=== PATIENT | female | born 1950 | race Caucasian/White ===

== ENCOUNTER 2018-12-21 08:00 | Day surgery (SDC) | payer OTHER ==
[~2018-12-21] VITALS: Ht 172.7 cm; Wt 57.5 kg
[~2018-12-21 08:00] MED LIST: Alph-E-Mixed400 UNIT PO; CHOL10002 PO; ESCI10 PO; ESCI20 PO; LAMO100 PO; MULTI VITAMIN1 EACH PO; MULVITMIND PO; Milk Of Ma400 MG/5 M; Stool Softener100 MG PO; VITAMIN C500 M1 PO; VITAMIN D32000 UNIT PO; VITAMIN E100 UNI1 PO; Vitamin C100 M1 PO
--- NOTE | 2018-12-21 09:01 | NUR ---
12/21/18 0901 RadhaLucía gupta 1 ATTEMPT OF IV IN RT HAND AND WOULD NOT THREAD. 1 ATTEMPT IN RT FOREARM AND IT WAS SUCC.
== END 2018-12-21 11:29 | disposition home or self-care (01) ==
LOC: ORSCSDS 08:00
PROVIDERS: Internal Medicine Gastroenterology
PROC: 0DB58ZX Excision of Esophagus, Via Natural or Artificial Opening Endoscopic, Diagnostic (ICD-10-PCS; principal; 2018-12-21 09:45)
PROC: 0DBK8ZX Excision of Ascending Colon, Via Natural or Artificial Opening Endoscopic, Diagnostic (ICD-10-PCS; principal; 2018-12-21 09:45)
PROC: 0DB68ZX Excision of Stomach, Via Natural or Artificial Opening Endoscopic, Diagnostic (ICD-10-PCS; principal; 2018-12-21 09:45)
DX: K21.9 Gastro-esophageal reflux disease without esophagitis (principal); R13.14 Dysphagia, pharyngoesophageal phase; R07.9 Chest pain, unspecified; K29.70 Gastritis, unspecified, without bleeding; K31.9 Disease of stomach and duodenum, unspecified; Z12.11 Encounter for screening for malignant neoplasm of colon; Z86.010 Personal history of colon polyps; D12.2 Benign neoplasm of ascending colon; K57.30 Diverticulosis of large intestine without perforation or abscess without bleeding
CPT/HCPCS: 87081; 88305; 88342; J7120

== ENCOUNTER → 2019-06-15 | Outpatient (CLI) | payer OTHER | END | disposition home or self-care (01) | LOC: LAB SHORT 11:26 → LAB 11:26 | PROVIDERS: Nurse Practitioner | DX: Z01.419 Encounter for gynecological examination (general) (routine) without abnormal findings (principal) | CPT/HCPCS: G0145 ==

== ENCOUNTER → 2021-05-14 | Outpatient (CLI) | payer OTHER | END | disposition home or self-care (01) | LOC: LAB SHORT 08:10 | PROVIDERS: Nurse Practitioner | DX: Z01.419 Encounter for gynecological examination (general) (routine) without abnormal findings (principal) | CPT/HCPCS: G0145 ==

== ENCOUNTER → 2022-08-05 | Outpatient (CLI) | payer OTHER ==
[2022-08-13 15:08] LABS: HPV 16 Negative (Negative); HPV 18 Negative (Negative); HPV OTHER HR TYPES Negative (Negative)
== END | disposition home or self-care (01) ==
LOC: LAB SHORT 16:00 → LAB 16:00
PROVIDERS: Physician Assistant
DX: Z01.419 Encounter for gynecological examination (general) (routine) without abnormal findings (principal)
CPT/HCPCS: 87624; 88175

== ENCOUNTER → 2024-12-26 | Outpatient (CLI) | payer OTHER ==
[~2024-12-26] MED LIST changes: +ALEN70; +Calcium Carbon500 MG; +FISH OIL 1,4001 EAC2; +ZINC15
== END | disposition home or self-care (01) ==
LOC: PLD 08:13 → LAB 08:13
DX: J39.2 Other diseases of pharynx (principal)
CPT/HCPCS: 88305

== ENCOUNTER → 2025-08-01 | Outpatient (CLI) | payer OTHER | LOC: LAB SHORT 11:30 → LAB 11:30 | DX: R30.0 Dysuria (principal) | CPT/HCPCS: 87086 ==